=== PATIENT | female | born 1955 | race Caucasian/White ===

== ENCOUNTER → 2017-01-17 | Outpatient (CLI) | payer OTHER ==
[~2017-01-17] MED LIST: ACET65TA; AMOX500C PO; ASCO10003 PO; ASPI1TAB PO; ASPI81TA83; BENA25CA2 PO; CETI10TA; FLUO20CA8 PO; FURO40TA2 PO; HCTZ25 PO; KEFL500C; LISI10TA4 PO; METO25TAB PO; MICA40TA; MULTLIQ7; OMEP20CA3 PO; PLAV1TAB2 PO; POTA10CA; PROBCAP4 PO; PROZ10CA; PROZ20CA; RANI150T PO; SIMV20TA2 PO; TEMOVATECR TOPICAL; TRIC145T19; VITA500C; VITMTA PO; patanol
--- NOTE | 2017-01-17 12:09 | REP ---
MRA BRAIN WITHOUT CONTRAST: HISTORY: Vertigo. 3D [id number]-gx-[id number] MR angiography was performed at the level of the [place] of [place]. COMPARISON: 01/15/2016. There is no aneurysm, arteriovenous malformation or atherosclerotic lesion. The major intracranial vessels are patent. The vertebral arteries are equal in size. IMPRESSION: Normal MRA brain. Signed by John Russo MD 01/17/2017 12:12 P
--- NOTE | 2017-01-17 12:11 | REP ---
MR BRAIN WITHOUT CONTRAST: HISTORY: Vertigo. COMPARISON: 11/28/2015 Areas of increased signal intensity on T2-weighted images are present in the periventricular and subcortical white matter and lynn. This represents small vessel ischemic disease. There is no intraparenchymal hemorrhage, infarct, mass or midline shift. The ventricular system is normal in appearance. There is no extracerebral collection. The sinuses are clear. IMPRESSION: Small vessel ischemic disease. Signed by John Russo MD 01/17/2017 12:12 P
--- NOTE | 2017-01-17 12:46 | REP ---
MRA CAROTIDS WITHOUT AND WITH CONTRAST: HISTORY: Vertigo. CONTRAST: ProHance 25 mL. Unenhanced 2D mocp-ls-dckdax and contrast-enhanced MR angiography were performed at the level of the carotid bifurcations. The distal common carotid arteries and origins of the external and internal carotid arteries are normal. The vertebral arteries are equal in size and patent. There are no atherosclerotic lesions. IMPRESSION: Normal MRA carotids. Signed by John Russo MD 01/17/2017 01:05 P
== END ==
LOC: M PLARAD 10:20
PROVIDERS: ATTEND Psychiatry & Neurology Neurology
DX: H81.43 Vertigo of central origin, bilateral (principal); G45.9 Transient cerebral ischemic attack, unspecified
CPT/HCPCS: 70544; 70549; 70551; A9576

== ENCOUNTER → 2018-04-23 | Outpatient (CLI) | payer OTHER | LOC: M RAD 09:36 | DX: Z12.2 Encounter for screening for malignant neoplasm of respiratory organs (principal); Z87.891 Personal history of nicotine dependence | CPT/HCPCS: G0297 ==

== ENCOUNTER → 2018-10-07 | Outpatient (CLI) | payer OTHER ==
[~2018-10-07] MED LIST changes: -ASPI1TAB PO; +ASPI81TA26 PO; +METO1TAB63 PO; -METO25TAB PO
--- NOTE | 2018-10-07 09:26 | REPMRS ---
Patient History The patient states she had a clinical breast exam in 03/2018 Baseline Mammogram Patient is postmenopausal. Family history of breast cancer at age 35 in mother. 3D TOMOSYNTHESIS WAS PERFORMED. Digital Woman Screen Mammo: October 07, 2018 - Exam #: [id number] Bilateral CC and MLO view(s) were taken. Technologist: Lisseth Nunez, Technologist FINDINGS: There are scattered fibroglandular densities. There is no evidence of cancer on this mammogram. Assessment: BI-RADS/ACR category 2 mammogram. Benign Findings. Recommendation Routine screening mammogram of both breasts in 1 year (for women over age 40). This mammogram was interpreted with the aid of an FDA-approved computer-aided dectection system. Electronically Signed By: Carlos Hernandez MD 10/07/18 0926
== END ==
LOC: M WHC 07:46
PROVIDERS: ATTEND Family Medicine
DX: Z12.31 Encounter for screening mammogram for malignant neoplasm of breast (principal); Z78.0 Asymptomatic menopausal state; Z80.3 Family history of malignant neoplasm of breast

== ENCOUNTER → 2018-10-08 | Outpatient (REF) | payer OTHER ==
[2018-10-08 12:59] LABS: BASO # 0.1 10^3/uL (0.0-0.2); BASO % 0.5 % (0.0-1.0); EOS # 0.2 10^3/uL (0.0-0.50); EOS % 1.9 % (0.0-3.0); HEMATOCRIT 43.4 % (36.0-47.0); HEMOGLOBIN 13.7 g/dl (12.0-15.5); LYMPH # 2.7 10^3/uL (1.5-4.5); LYMPH % 29.4 % (24.0-44.0); MEAN CORPUSCULAR HGB CONC 31.6 g/dl (32.0-36.5); MEAN CORPUSCULAR VOLUME 91.8 fl (80.0-96.0); MONO # 0.7 10^3/uL (0.0-0.8); NEUTROPHILS # 5.6 10^3/uL (1.8-7.7); NEUTROPHILS % 59.9 % (36.0-66.0); PLATELET COUNT, AUTOMATED 321 10^3/uL (150-450); RED BLOOD COUNT 4.73 10^6/uL (4.00-5.40); WHITE BLOOD COUNT 9.3 10^3/uL (4.0-10.0)
[2018-10-08 13:32] LABS: ALBUMIN 3.7 GM/DL (3.2-5.2); ALT/SGPT 47 U/L (12-78); BILIRUBIN,TOTAL 0.3 MG/DL (0.2-1.0); BLOOD UREA NITROGEN 20 MG/DL (7-18); CALCIUM LEVEL 8.7 MG/DL (8.8-10.2); CARBON DIOXIDE LEVEL 29 MEQ/L (21-32); CHLORIDE LEVEL 110 MEQ/L (98-107); CREATININE FOR GFR 0.63 MG/DL (0.55-1.30); GLOMERULAR FILTRATION RATE > 60.0 (>45); GLUCOSE, FASTING 74 MG/DL (70-100); POTASSIUM SERUM 4.9 MEQ/L (3.5-5.1); SODIUM LEVEL 142 MEQ/L (136-145); TOTAL PROTEIN 7.5 GM/DL (6.4-8.2)
== END ==
LOC: M SFHCADAM 09:44
PROVIDERS: ATTEND Family Medicine
DX: Z01.812 Encounter for preprocedural laboratory examination (principal)

== ENCOUNTER 2018-11-11 07:42 | Day surgery (SDC) | payer OTHER ==
[~2018-11-11] VITALS: Ht 160 cm; Wt 91.2 kg
[~2018-11-11 07:42] MED LIST changes: +NS 1,000 ML IV ONE; +ULTR5TAB PO; +ZOLO50TA PO
[2018-11-11] MEDS ORDERED: LIDOCAINE 2% INJ 100 MG/5 ML SDV (FOR ANES.) As Ordered ONE (08:49)
[2018-11-11] MEDS ORDERED: PROPOFOL 500 MG/50 ML VIAL As Ordered ONE (08:49)
--- NOTE | 2018-11-11 09:34 | ROOR ---
Patient Name: Tom Vu Procedure Date: 11/11/2018 8:44 AM Date of : 1955 Age: 62 Room: [facility] Gender: Female Note Status: Finalized Procedure: Colonoscopy Indications: Screening for colorectal malignant neoplasm Providers: Abdiel Lawson MD Referring MD: Anita CLAUDIO DO Requesting Provider: Medicines: Monitored Anesthesia Care Complications: No immediate complications. Procedure: Pre-Anesthesia Assessment: - Prior to the procedure, a History and Physical was performed, and patient medications and allergies were reviewed. The patient is competent. The risks and benefits of the procedure and the sedation options and risks were discussed with the patient. All questions were answered and informed consent was obtained. Patient identification and proposed procedure were verified by the physician, the nurse and the anesthesiologist in the endoscopy suite. Mental Status Examination: alert and oriented. Airway Examination: normal oropharyngeal airway and neck mobility. Respiratory Examination: clear to auscultation. CV Examination: normal. Prophylactic Antibiotics: The patient does not require prophylactic antibiotics. Prior Anticoagulants: The patient has taken aspirin, last dose was 1 day prior to procedure. ASA Grade Assessment: II - A patient with mild systemic disease. After reviewing the risks and benefits, the patient was deemed in satisfactory condition to undergo the procedure. The anesthesia plan was to use monitored anesthesia care (MAC). Immediately prior to administration of medications, the patient was re-assessed for adequacy to receive sedatives. The heart rate, respiratory rate, oxygen saturations, blood pressure, adequacy of pulmonary ventilation, and response to care were monitored throughout the procedure. The physical status of the patient was re-assessed after the procedure. The Colonoscope was introduced through the anus and advanced to the cecum, identified by appendiceal orifice and ileocecal valve. The colonoscopy was technically difficult and complex due to poor bowel prep. Successful completion of the procedure was aided by lavage. The patient tolerated the procedure well. The quality of the bowel preparation was fair. Left colon with scattered small pieces of solid stool but generally manageable with lavage. Right colon (ascending and cecum) with thick coating of the mucosa circumferentially which was difficult to dislodge with generous lavage. Findings: Hemorrhoids were found on perianal exam. The colon (entire examined portion) appeared normal. Estimated blood loss: none. The retroflexed view of the distal rectum and anal verge was normal and showed no anal or rectal abnormalities. Impression: - Hemorrhoids found on perianal exam. - The entire examined colon is normal. - The distal rectum and anal verge are normal on retroflexion view. - No specimens collected. Recommendation: - Discharge patient to home (ambulatory). - Repeat colonoscopy in 1 year because the bowel preparation was suboptimal. Abdiel Lawson MD Abdiel Lawson MD 11/11/2018 9:34:14 AM Electronically signed by Abdiel Lawson MD Number of Addenda: 0 Note Initiated On: 11/11/2018 8:44 AM Estimated Blood Loss: Estimated blood loss: none.
[2018-11-11 10:00] VITALS: BP 175/72
== END 2018-11-11 10:04 | disposition home or self-care (01) ==
LOC: M OPP 07:42
PROVIDERS: ATTEND Surgery
DX: K64.8 Other hemorrhoids (principal); Z12.11 Encounter for screening for malignant neoplasm of colon

== ENCOUNTER → 2018-12-09 | Outpatient (CLI) | payer OTHER ==
[~2018-12-09] MED LIST changes: -NS 1,000 ML IV ONE; -OMEP20CA3 PO; +OMEP20CA4 PO
[2018-12-09 13:26] LABS: HEMOGLOBIN 13.7 g/dl (12.0-15.5); MEAN CORPUSCULAR HEMOGLOBIN 28.8 pg (27.0-33.0); MEAN CORPUSCULAR HGB CONC 31.9 g/dl (32.0-36.5); MEAN CORPUSCULAR VOLUME 90.3 fl (80.0-96.0); PLATELET COUNT, AUTOMATED 308 10^3/uL (150-450); RED BLOOD COUNT 4.76 10^6/uL (4.00-5.40); WHITE BLOOD COUNT 8.4 10^3/uL (4.0-10.0)
[2018-12-09 13:42] LABS: BLOOD UREA NITROGEN 18 MG/DL (7-18); CARBON DIOXIDE LEVEL 27 MEQ/L (21-32); CHLORIDE LEVEL 111 MEQ/L (98-107); CREATININE FOR GFR 0.65 MG/DL (0.55-1.30); GLOMERULAR FILTRATION RATE > 60.0 (>45); GLUCOSE, FASTING 88 MG/DL (70-100); POTASSIUM SERUM 4.2 MEQ/L (3.5-5.1); SODIUM LEVEL 144 MEQ/L (136-145)
[2018-12-09 13:43] LABS: CALCIUM LEVEL 8.9 MG/DL (8.8-10.2); TROPONIN I < 0.02 NG/ML (< 0.10)
== END ==
LOC: M SMT 10:08
PROVIDERS: ATTEND Internal Medicine Cardiovascular Disease
DX: R07.9 Chest pain, unspecified (principal)

== ENCOUNTER → 2019-09-27 | Outpatient (REF) | payer OTHER ==
[~2019-09-27] MED LIST changes: +FLUO20CA20 PO; -FLUO20CA8 PO; +OMEP1CAP73 PO; -OMEP20CA4 PO; -SIMV20TA2 PO; +SIMV20TA22 PO
[2019-09-27 13:54] LABS: BASO % 0.5 % (0.0-1.0); EOS # 0.2 10^3/uL (0.0-0.5); EOS % 2.2 % (0.0-3.0); HEMOGLOBIN 13.5 g/dl (12.0-15.5); LYMPH # 2.2 10^3/uL (1.5-5.0); LYMPH % 25.8 % (24.0-44.0); MEAN CORPUSCULAR HEMOGLOBIN 28.6 pg (27.0-33.0); MEAN CORPUSCULAR HGB CONC 31.4 g/dl (32.0-36.5); MEAN CORPUSCULAR VOLUME 91.1 fl (80.0-96.0); MONO # 0.7 10^3/uL (0.0-0.8); MONO % 7.9 % (0.0-5.0); NEUTROPHILS # 5.3 10^3/uL (1.5-8.5); NEUTROPHILS % 63.4 % (36.0-66.0); PLATELET COUNT, AUTOMATED 297 10^3/uL (150-450); RED BLOOD COUNT 4.72 10^6/uL (4.00-5.40); WHITE BLOOD COUNT 8.3 10^3/uL (4.0-10.0)
[2019-09-27 14:08] LABS: ALBUMIN 3.6 GM/DL (3.2-5.2); ALT/SGPT 33 U/L (12-78); BILIRUBIN,TOTAL 0.4 MG/DL (0.2-1.0); BLOOD UREA NITROGEN 14 MG/DL (7-18); CALCIUM LEVEL 8.9 MG/DL (8.8-10.2); CARBON DIOXIDE LEVEL 30 MEQ/L (21-32); CHLORIDE LEVEL 107 MEQ/L (98-107); CHOLESTEROL LEVEL 166 MG/DL (<200); CHOLESTEROL RISK RATIO 2.273 (<5); CREATININE FOR GFR 0.67 MG/DL (0.55-1.30); GLOMERULAR FILTRATION RATE > 60.0 (>45); GLUCOSE, FASTING 84 MG/DL (70-100); HDL CHOLESTEROL 73 MG/DL (>40); LDL CHOLESTEROL 68 MG/DL (<100); NON-HDL-C 93 MG/DL; POTASSIUM SERUM 4.6 MEQ/L (3.5-5.1); SODIUM LEVEL 140 MEQ/L (136-145); TOTAL PROTEIN 7.3 GM/DL (6.4-8.2); TRIGLYCERIDES LEVEL 127 MG/DL (<150)
== END ==
LOC: M SFHCADAM 09:04
PROVIDERS: ATTEND Family Medicine
DX: Z00.00 Encounter for general adult medical examination without abnormal findings (principal); R60.9 Edema, unspecified

== ENCOUNTER → 2022-09-02 | Outpatient (CLI) | payer MEDICARE ==
[~2022-09-02] MED LIST changes: +CLOP75TA99 PO; +FLUO-96 PO; -FLUO20CA20 PO; +LISI10TA22 PO; -LISI10TA4 PO; -PLAV1TAB2 PO
== END ==
LOC: M CLY 11:07
PROVIDERS: ATTEND Nurse Practitioner Family
DX: M25.561 Pain in right knee (principal)

== ENCOUNTER → 2022-09-02 | Outpatient (REF) | payer MEDICARE ==
[2022-09-02 17:44] LABS: THYROID STIMULATING HORMONE 1.977 uIU/ML (0.55-4.78)
[2022-09-02 17:45] LABS: FOLATE > 24.00 NG/ML (>5.4)
[2022-09-02 17:46] LABS: FERRITIN 24.5 NG/ML (7.3-270.7); FREE T4 0.97 NG/DL (0.89-1.76); IRON (FE) 58 UG/DL (50-170); PERCENT SATURATION 17.4 % (13.2-45.0); TOTAL IRON BINDING CAPACITY 333 UG/DL (250-425)
[2022-09-02 17:47] LABS: ALBUMIN 3.7 G/DL (3.2-5.2); ALKALINE PHOSPHATASE 92 U/L (46-116); ALT/SGPT 22 U/L (7.0-40); AST/SGOT 21 U/L (<34); BILIRUBIN,TOTAL 0.4 MG/DL (0.3-1.2); BLOOD UREA NITROGEN 16 MG/DL (9-23); CALCIUM LEVEL 8.7 MG/DL (8.3-10.6); CARBON DIOXIDE LEVEL 29 MMOL/L (20-31); CHLORIDE LEVEL 105 MMOL/L (98-107); CHOLESTEROL LEVEL 128 MG/DL (<200); CHOLESTEROL RISK RATIO 1.92 (<5); GLOMERULAR FILTRATION RATE > 60.0 (>45); GLUCOSE, FASTING 88 MG/DL (74-106); HDL CHOLESTEROL 66.6 MG/DL (>40); HEMATOCRIT 43.7 % (36.0-47.0); HEMOGLOBIN 13.8 g/dl (12.0-15.5); LDL CHOLESTEROL 46.8 MG/DL (<100); MEAN CORPUSCULAR HEMOGLOBIN 28.6 pg (27.0-33.0); MEAN CORPUSCULAR HGB CONC 31.6 g/dl (32.0-36.5); MEAN CORPUSCULAR VOLUME 90.5 fl (80.0-96.0); NON-HDL-C 61.4 MG/DL; PLATELET COUNT, AUTOMATED 315 10^3/uL (150-450); POTASSIUM SERUM 4.4 MMOL/L (3.5-5.1); RED BLOOD COUNT 4.83 10^6/uL (4.00-5.40); SODIUM LEVEL 141 MMOL/L (136-145); TOTAL PROTEIN 6.8 G/DL (5.7-8.2); TRIGLYCERIDES LEVEL 73 MG/DL (<150); VITAMIN B12 LEVEL 1189 PG/ML (211-911); WHITE BLOOD COUNT 8.8 10^3/uL (4.0-10.0)
[2022-09-02 17:52] LABS: HEMOGLOBIN A1c 5.4 % (4.0-6.0)
== END ==
LOC: M SFHCCLAY 10:46
PROVIDERS: ATTEND Nurse Practitioner Family
DX: G47.33 Obstructive sleep apnea (adult) (pediatric) (principal); F32.9 Major depressive disorder, single episode, unspecified; Z98.84 Bariatric surgery status; M25.561 Pain in right knee; Z79.899 Other long term (current) drug therapy

== ENCOUNTER → 2022-09-24 | Outpatient (REF) | payer MEDICARE | LOC: M SFHCDERM 13:28 | PROVIDERS: ATTEND Nurse Practitioner Family | DX: L30.8 Other specified dermatitis (principal); R21 Rash and other nonspecific skin eruption | CPT/HCPCS: 11104; 11105; 88300; G0463 ==

== ENCOUNTER → 2022-09-26 | Outpatient (CLI) | payer MEDICARE | LOC: M SOG 08:29 | PROVIDERS: ATTEND Orthopaedic Surgery | DX: M25.462 Effusion, left knee (principal); M17.12 Unilateral primary osteoarthritis, left knee ==

== ENCOUNTER → 2022-10-07 | Outpatient (CLI) | payer MEDICARE ==
[2022-10-07 11:07] LABS: BASO % 0.4 % (0.0-1.0); EOS # 0.1 10^3/uL (0.0-0.5); EOS % 0.8 % (0.0-3.0); HEMATOCRIT 41.8 % (36.0-47.0); HEMOGLOBIN 13.5 g/dl (12.0-15.5); LYMPH # 1.7 10^3/uL (1.5-5.0); LYMPH % 21.6 % (24.0-44.0); MEAN CORPUSCULAR HEMOGLOBIN 29.1 pg (27.0-33.0); MEAN CORPUSCULAR HGB CONC 32.3 g/dl (32.0-36.5); MEAN CORPUSCULAR VOLUME 90.1 fl (80.0-96.0); MONO # 0.5 10^3/uL (0.0-0.8); MONO % 6.5 % (2.0-8.0); NEUTROPHILS # 5.4 10^3/uL (1.5-8.5); NEUTROPHILS % 70.4 % (36.0-66.0); PLATELET COUNT, AUTOMATED 280 10^3/uL (150-450); RED BLOOD COUNT 4.64 10^6/uL (4.00-5.40); WHITE BLOOD COUNT 7.7 10^3/uL (4.0-10.0)
[2022-10-07 11:40] LABS: ALBUMIN 3.2 G/DL (3.2-5.2); ALKALINE PHOSPHATASE 91 U/L (46-116); ALT/SGPT 25 U/L (7.0-40); AST/SGOT 16 U/L (<34); BILIRUBIN,TOTAL 0.4 MG/DL (0.3-1.2); BLOOD UREA NITROGEN 14 MG/DL (9-23); CALCIUM LEVEL 8.3 MG/DL (8.3-10.6); CARBON DIOXIDE LEVEL 28 MMOL/L (20-31); CHLORIDE LEVEL 110 MMOL/L (98-107); CREATININE FOR GFR 0.62 MG/DL (0.55-1.30); GLOMERULAR FILTRATION RATE > 60.0 (>45); GLUCOSE, FASTING 80 MG/DL (74-106); POTASSIUM SERUM 4.5 MMOL/L (3.5-5.1); SODIUM LEVEL 141 MMOL/L (136-145); TOTAL PROTEIN 6.5 G/DL (5.7-8.2)
[2022-10-07 11:54] LABS: HEPATITIS B SURFACE ANTIGEN NEGATIVE (NEGATIVE)
[2022-10-07 12:07] LABS: HIV 1&2 SCREEN CENTAUR NEGATIVE (NEGATIVE)
[2022-10-07 12:15] LABS: HEPATITIS C VIRUS ABY INDEX 0.1 INDEX (<0.8)
[2022-10-07 12:16] LABS: HEPATITIS B CORE ANTIBODY IGM NEGATIVE (NEGATIVE)
== END ==
LOC: M LAB 09:27
PROVIDERS: ATTEND Nurse Practitioner Family
DX: R21 Rash and other nonspecific skin eruption (principal)

== ENCOUNTER → 2023-01-22 | Outpatient (CLI) | payer MEDICARE | LOC: M SOG 09:47 | PROVIDERS: ATTEND Orthopaedic Surgery | DX: M25.561 Pain in right knee (principal); M25.562 Pain in left knee ==

== ENCOUNTER → 2023-02-24 | Outpatient (REF) | payer MEDICARE ==
[~2023-02-24] MED LIST changes: +APRE30TA3 PO; +D3 S1CAP3 PO; +FLUO40CA PO; +OMEP-173 PO; +VITA500T41 PO; +ZYRT10TA12 PO
[2023-02-24 19:41] LABS: BASO % 0.6 % (0.0-1.0); EOS # 0.2 10^3/uL (0.0-0.5); EOS % 2.8 % (0.0-3.0); HEMATOCRIT 40.9 % (36.0-47.0); HEMOGLOBIN 12.9 g/dl (12.0-15.5); LYMPH # 1.8 10^3/uL (1.5-5.0); LYMPH % 26.1 % (24.0-44.0); MEAN CORPUSCULAR HEMOGLOBIN 28.7 pg (27.0-33.0); MEAN CORPUSCULAR HGB CONC 31.5 g/dl (32.0-36.5); MEAN CORPUSCULAR VOLUME 91.1 fl (80.0-96.0); MONO # 0.5 10^3/uL (0.0-0.8); MONO % 7.3 % (2.0-8.0); NEUTROPHILS # 4.3 10^3/uL (1.5-8.5); NEUTROPHILS % 62.9 % (36.0-66.0); PLATELET COUNT, AUTOMATED 273 10^3/uL (150-450); RED BLOOD COUNT 4.49 10^6/uL (4.00-5.40); WHITE BLOOD COUNT 6.8 10^3/uL (4.0-10.0)
[2023-02-24 20:07] LABS: HEMOGLOBIN A1c 5.1 % (4.0-6.0)
[2023-02-24 20:14] LABS: C REACTIVE PROTEIN QUANTITATIV < 0.40 MG/DL (<1.0)
[2023-02-24 20:19] LABS: ALBUMIN 3.4 G/DL (3.2-5.2); ALKALINE PHOSPHATASE 88 U/L (46-116); ALT/SGPT 30 U/L (7.0-40); AST/SGOT 19 U/L (<34); BILIRUBIN,TOTAL 0.5 MG/DL (0.3-1.2); BLOOD UREA NITROGEN 15 MG/DL (9-23); CALCIUM LEVEL 8.2 MG/DL (8.3-10.6); CARBON DIOXIDE LEVEL 28 MMOL/L (20-31); CHLORIDE LEVEL 108 MMOL/L (98-107); CHOLESTEROL LEVEL 125 MG/DL (<200); CHOLESTEROL RISK RATIO 1.67 (<5); CREATININE FOR GFR 0.65 MG/DL (0.55-1.30); GLOMERULAR FILTRATION RATE > 60.0 (>45); GLUCOSE, FASTING 85 MG/DL (74-106); HDL CHOLESTEROL 74.8 MG/DL (>40); NON-HDL-C 50.2 MG/DL; POTASSIUM SERUM 4.2 MMOL/L (3.5-5.1); SODIUM LEVEL 144 MMOL/L (136-145); TOTAL PROTEIN 6.5 G/DL (5.7-8.2); TRIGLYCERIDES LEVEL 61 MG/DL (<150)
== END ==
LOC: M SFHCCLAY 10:15
PROVIDERS: ATTEND Nurse Practitioner Family
DX: Z01.818 Encounter for other preprocedural examination (principal); E78.00 Pure hypercholesterolemia, unspecified

== ENCOUNTER → 2023-02-28 | Outpatient (CLI) | payer MEDICARE | LOC: M RAD 13:07 | PROVIDERS: ATTEND Orthopaedic Surgery | DX: M17.0 Bilateral primary osteoarthritis of knee (principal) ==

== ENCOUNTER 2023-03-11 08:58 | Observation (INO) | payer MEDICARE ==
[~2023-03-11] VITALS: Ht 160 cm; Wt 81.9 kg
[2023-03-11] VITALS (8 sets, daily range): BP systolic 133–197; BP diastolic 63–88; TEMP 96.6–97.9; O2SAT 92–99
[~2023-03-11 08:58] MED LIST changes: +ROPIVA 100MG/KETOR 15MG/EPINEPHRINE 0.3MG IN NS 50ML SYRINGE PA ONE; +TRANEXAMIC ACID INJection 1,000 MG in NS 100 ML IV ONE; +ceFAZolin SOD 2 GM in IV 1 EA IV ONE
[2023-03-11] MEDS ORDERED: LR 1,000 ML IV SCH ×3 (09:15→14:00)
[2023-03-11] MEDS ORDERED: propofoL 200 MG/20 ML VIAL As Ordered ONE (09:31)
[2023-03-11] MEDS ORDERED: ROCURONIUM BROMIDE 50MG/5ML VIAL As Ordered ONE (09:31)
[2023-03-11] MEDS ORDERED: LIDOCAINE 2% 100MG/5ML SDV (FOR ANES.) As Ordered ONE (09:31)
[2023-03-11] MEDS ORDERED: fentaNYL 250 MCG/5 ML INJECTION As Ordered ONE (09:32)
[2023-03-11] MEDS ORDERED: MIDAZOLAM INJ 2MG/2ML VIAL As Ordered ONE (09:32)
[2023-03-11] MEDS ORDERED: ROPIvacaine 0.5% 30ML VIAL PN ONE (10:20)
[2023-03-11] MEDS ORDERED: EPINEPHrine INJ 1 MG/ML 1ML AMP PN ONE (10:20)
[2023-03-11] MEDS ORDERED: dexAMETHasone 10MG/1ML VIAL PRES.FREE PN ONE (10:20)
[2023-03-11] MEDS ORDERED: fentaNYL 100 MCG/2 ML INJECTION IV PRN ×2 (10:20→13:45)
[2023-03-11] MEDS ORDERED: LIDOCAINE 1% SDV 5ML VIAL PN ONE (10:20)
[2023-03-11] MEDS: MIDAZOLAM INJ 2MG/2ML VIAL IV PRN ×2 (10:35→10:40)
[2023-03-11] MEDS ORDERED: TRANEXAMIC ACID 100 MG/ML 10ML VIAL As Ordered ONE (10:40)
[2023-03-11] MEDS ORDERED: ePHEDrine SULFATE 25 MG/5 ML(5MG/ML) SYRINGE As Ordered ONE (11:35)
[2023-03-11] MEDS ORDERED: ONDANSETRON 4MG 2ML VIAL As Ordered ONE (11:51)
[2023-03-11] MEDS ORDERED: KETOROLAC 60MG 2ML VIAL As Ordered ONE (11:51)
[2023-03-11] MEDS ORDERED: ACETAMINOPHEN 1000MG 100ML IV BAG As Ordered ONE (11:51)
[2023-03-11] MEDS ORDERED: HYDROmorphone HCL 2MG/ML 1ML VIAL As Ordered ONE (12:04)
[2023-03-11] MEDS ORDERED: GLYCOPYRROLATE INJ 0.2 MG/ML 2 ML VIAL As Ordered ONE (12:21)
[2023-03-11] MEDS ORDERED: ESMOLOL INJ 100MG/10ML VIAL As Ordered ONE (12:36)
[2023-03-11] MEDS ORDERED: SUGAMMADEX SODIUM 500 MG/5 ML VIAL (BRIDION) As Ordered ONE (13:15)
[2023-03-11] MEDS ORDERED: ONDANSETRON 4MG 2ML VIAL IV PRN ×2 (13:45→14:00)
[2023-03-11] MEDS ORDERED: oxyCODONE 5MG TAB PO PRN ×2 (13:45→14:00)
[2023-03-11] MEDS: LABETALOL 100MG/20ML VIAL IV PRN ×4 (13:53→14:17)
[2023-03-11] MEDS ORDERED: SENNA 8.6 MG TAB (SENOKOT) PO PRN (14:00)
[2023-03-11] MEDS: HYDROMORPHONE HCL 0.5 MG/ 0.5 ML SYRINGE IV PRN ×2 (14:25→14:32)
[2023-03-11] MEDS ORDERED: MED REC IN PROGRESS XX SCH (17:05)
[2023-03-11] MEDS ORDERED: CLOBETASOL 0.05% TOP (17:25)
[2023-03-11] MEDS: ACETAMINOPHEN TAB 650MG DOSE (2X325MG) PO SCH (17:33)
[2023-03-11] MEDS: FERROUS SULFATE 325MG TAB PO SCH (17:34)
[2023-03-11] MEDS: oxyCODONE 5MG TAB PO PRN (17:34)
[2023-03-11] MEDS: ASCORBIC ACID 500 MG TAB PO SCH (17:34)
[2023-03-11] MEDS ORDERED: HOME MED LIST COMPLETE! XX SCH (17:35)
[2023-03-11] MEDS: CETIRIZINE (ZyrTEC) 10 MG TAB PO SCH (18:45)
[2023-03-11] MEDS: FLUoxetine 20MG CAP PO SCH (18:45)
[2023-03-11] MEDS: ceFAZolin SOD 2 GM in IV 1 EA IV SCH (18:46)
[2023-03-11] MEDS: ASPIRIN 81MG ENTERIC TABLET PO SCH (19:47)
[2023-03-11] MEDS: DOCUSATE SODIUM 100MG CAPSULE PO SCH (19:47)
[2023-03-11] MEDS ORDERED: SIMVASTATIN 20 MG TAB PO SCH (21:00)
[2023-03-12] MEDS: ACETAMINOPHEN TAB 650MG DOSE (2X325MG) PO SCH ×2 (00:15→05:09)
[2023-03-12] MEDS: oxyCODONE 5MG TAB PO PRN ×2 (00:15→05:08)
[2023-03-12 00:45] VITALS: BP 164/75; TEMP 97.1; O2SAT 99
[2023-03-12] MEDS: ceFAZolin SOD 2 GM in IV 1 EA IV SCH (03:03)
[2023-03-12 05:05] VITALS: BP 166/70; TEMP 97.3; O2SAT 99
[2023-03-12 06:34] LABS: HEMATOCRIT 32.9 % (36.0-47.0); HEMOGLOBIN 10.6 g/dl (12.0-15.5); MEAN CORPUSCULAR HGB CONC 32.2 g/dl (32.0-36.5); MEAN CORPUSCULAR VOLUME 89.9 fl (80.0-96.0); PLATELET COUNT, AUTOMATED 243 10^3/uL (150-450); RED BLOOD COUNT 3.66 10^6/uL (4.00-5.40); WHITE BLOOD COUNT 19.8 10^3/uL (4.0-10.0)
[2023-03-12 06:46] LABS: INR 1.11
[2023-03-12 07:05] LABS: ALBUMIN 2.9 G/DL (3.2-5.2); ALKALINE PHOSPHATASE 74 U/L (46-116); ALT/SGPT 28 U/L (7.0-40); AST/SGOT 21 U/L (<34); BILIRUBIN,TOTAL 0.3 MG/DL (0.3-1.2); BLOOD UREA NITROGEN 14 MG/DL (9-23); CALCIUM LEVEL 8.5 MG/DL (8.3-10.6); CARBON DIOXIDE LEVEL 26 MMOL/L (20-31); CHLORIDE LEVEL 107 MMOL/L (98-107); CREATININE FOR GFR 0.58 MG/DL (0.55-1.30); GLOMERULAR FILTRATION RATE > 60.0 (>45); GLUCOSE, FASTING 132 MG/DL (74-106); PHOSPHORUS LEVEL 3.8 MG/DL (2.4-5.1); POTASSIUM SERUM 4.2 MMOL/L (3.5-5.1); SODIUM LEVEL 140 MMOL/L (136-145); TOTAL PROTEIN 5.8 G/DL (5.7-8.2)
[2023-03-12] MEDS: ASPIRIN 81MG ENTERIC TABLET PO SCH (08:32)
[2023-03-12] MEDS: DOCUSATE SODIUM 100MG CAPSULE PO SCH (08:32)
[2023-03-12] MEDS: CETIRIZINE (ZyrTEC) 10 MG TAB PO SCH (08:32)
[2023-03-12] MEDS: ASCORBIC ACID 500 MG TAB PO SCH ×2 (08:33→09:00)
[2023-03-12] MEDS: FLUoxetine 20MG CAP PO SCH (08:33)
[2023-03-12] MEDS: FERROUS SULFATE 325MG TAB PO SCH (08:33)
[2023-03-12 08:45] VITALS: BP 125/58; TEMP 97.5; O2SAT 97
[2023-03-12] MEDS ORDERED: SENN-188 PO (09:54)
[2023-03-12] MEDS ORDERED: OXYC-517 PO (09:54)
[2023-03-12] MEDS ORDERED: COLA100C5 PO (09:54)
[2023-03-12] MEDS ORDERED: ACET1TAB55 PO (09:54)
== END 2023-03-12 10:55 | disposition home or self-care (01) ==
LOC: M SDC 08:58 → M ED INP 08:59 → M MS4PR 15:45
PROVIDERS: ADMIT Orthopaedic Surgery; ATTEND Orthopaedic Surgery
DX: M17.11 Unilateral primary osteoarthritis, right knee (principal); M85.60 Other cyst of bone, unspecified site; G47.30 Sleep apnea, unspecified; Z79.899 Other long term (current) drug therapy; Z79.82 Long term (current) use of aspirin; Z87.891 Personal history of nicotine dependence
CPT/HCPCS: 27447; 36415; 73560; 80053; 80069; 82306; 85027; 85610; 87635; 88300; 88305; 96374; 96376; 97161; 97165; 97530; C1713; C1776; G0378; J0131; J0690; J1100; J1170; J1805; J1885; J1920; J2250; J2405; J3010

== ENCOUNTER → 2023-03-20 | Outpatient (CLI) | payer MEDICARE ==
[~2023-03-20] MED LIST changes: +ACET1TAB55 PO; +CLOBETASOL 0.05% TOP; +COLA100C5 PO; +OXYC-517 PO; -ROPIVA 100MG/KETOR 15MG/EPINEPHRINE 0.3MG IN NS 50ML SYRINGE PA ONE; +SENN-188 PO; -TRANEXAMIC ACID INJection 1,000 MG in NS 100 ML IV ONE; -ceFAZolin SOD 2 GM in IV 1 EA IV ONE
== END ==
LOC: M SOG 07:49
PROVIDERS: ATTEND Orthopaedic Surgery
DX: Z47.1 Aftercare following joint replacement surgery (principal)

== ENCOUNTER → 2023-04-17 | Outpatient (CLI) | payer MEDICARE | LOC: M SOG 07:54 | PROVIDERS: ATTEND Orthopaedic Surgery | DX: Z47.1 Aftercare following joint replacement surgery (principal) ==

== ENCOUNTER → 2023-06-27 | Outpatient (CLI) | payer MEDICARE | LOC: M SOG 07:50 | PROVIDERS: ATTEND Orthopaedic Surgery | DX: Z47.1 Aftercare following joint replacement surgery (principal); Z96.651 Presence of right artificial knee joint ==

== ENCOUNTER → 2023-08-25 | Outpatient (REF) | payer MEDICARE, MEDICAID ==
[2023-08-25 18:10] LABS: BASO # 0.1 10^3/uL (0.0-0.2); BASO % 0.7 % (0.0-1.0); EOS # 0.2 10^3/uL (0.0-0.5); EOS % 2.1 % (0.0-3.0); HEMATOCRIT 41.7 % (36.0-47.0); HEMOGLOBIN 13.1 g/dl (12.0-15.5); LYMPH # 1.7 10^3/uL (1.5-5.0); LYMPH % 24.2 % (24.0-44.0); MEAN CORPUSCULAR HEMOGLOBIN 27.8 pg (27.0-33.0); MEAN CORPUSCULAR HGB CONC 31.4 g/dl (32.0-36.5); MEAN CORPUSCULAR VOLUME 88.3 fl (80.0-96.0); MONO # 0.6 10^3/uL (0.0-0.8); MONO % 8.4 % (2.0-8.0); NEUTROPHILS # 4.5 10^3/uL (1.5-8.5); NEUTROPHILS % 64.3 % (36.0-66.0); PLATELET COUNT, AUTOMATED 293 10^3/uL (150-450); RED BLOOD COUNT 4.72 10^6/uL (4.00-5.40)
[2023-08-25 18:31] LABS: IRON (FE) 62 UG/DL (50-170); PERCENT SATURATION 15.8 % (13.2-45.0); TOTAL IRON BINDING CAPACITY 392 UG/DL (250-425)
[2023-08-25 18:32] LABS: ALBUMIN 3.6 G/DL (3.2-5.2); ALKALINE PHOSPHATASE 87 U/L (46-116); ALT/SGPT 25 U/L (7.0-40); AST/SGOT 20 U/L (<34); BILIRUBIN,TOTAL 0.5 MG/DL (0.3-1.2); BLOOD UREA NITROGEN 18 MG/DL (9-23); CALCIUM LEVEL 8.6 MG/DL (8.3-10.6); CARBON DIOXIDE LEVEL 30 MMOL/L (20-31); CHLORIDE LEVEL 107 MMOL/L (98-107); CHOLESTEROL LEVEL 136 MG/DL (<200); CHOLESTEROL RISK RATIO 1.64 (<5); CREATININE FOR GFR 0.63 MG/DL (0.55-1.30); GLOMERULAR FILTRATION RATE > 60.0 (>45); GLUCOSE, FASTING 87 MG/DL (74-106); HDL CHOLESTEROL 82.8 MG/DL (>40); HEMOGLOBIN A1c 5.4 % (4.0-6.0); LDL CHOLESTEROL 38.6 MG/DL (<100); NON-HDL-C 53.2 MG/DL; POTASSIUM SERUM 4.5 MMOL/L (3.5-5.1); SODIUM LEVEL 140 MMOL/L (136-145); TOTAL PROTEIN 6.6 G/DL (5.7-8.2); TRIGLYCERIDES LEVEL 73 MG/DL (<150)
[2023-08-25 18:33] LABS: FERRITIN 10.4 NG/ML (7.3-270.7); FREE T4 0.95 NG/DL (0.89-1.76); THYROID STIMULATING HORMONE 1.556 uIU/ML (0.55-4.78); TOTAL 25(OH) VITAMIN D 40.5 NG/ML (20.0-100.0)
[2023-08-25 18:34] LABS: FOLATE > 24.00 NG/ML (>5.4)
[2023-08-25 18:37] LABS: VITAMIN B12 LEVEL > 2000 PG/ML (211-911)
== END ==
LOC: M SFHCCLAY 09:10
PROVIDERS: ATTEND Nurse Practitioner Family
DX: L40.8 Other psoriasis (principal); Z95.818 Presence of other cardiac implants and grafts; E78.5 Hyperlipidemia, unspecified; F32.9 Major depressive disorder, single episode, unspecified; G47.33 Obstructive sleep apnea (adult) (pediatric); K21.9 Gastro-esophageal reflux disease without esophagitis; Z98.84 Bariatric surgery status; Z79.899 Other long term (current) drug therapy; Z79.82 Long term (current) use of aspirin; Z99.89 Dependence on other enabling machines and devices; Z87.891 Personal history of nicotine dependence; Z86.39 Personal history of other endocrine, nutritional and metabolic disease

== ENCOUNTER → 2023-09-12 | Outpatient (CLI) | payer MEDICARE, MEDICAID | LOC: M SOG 08:04 | PROVIDERS: ATTEND Orthopaedic Surgery | DX: M25.562 Pain in left knee (principal); Z47.1 Aftercare following joint replacement surgery ==

== ENCOUNTER → 2023-09-19 | Outpatient (CLI) | payer OTHER, MEDICAID ==
[2023-09-19 10:27] LABS: BASO % 0.5 % (0.0-1.0); EOS # 0.1 10^3/uL (0.0-0.5); EOS % 1.4 % (0.0-3.0); HEMATOCRIT 36.2 % (36.0-47.0); HEMOGLOBIN 11.8 g/dl (12.0-15.5); LYMPH # 1.6 10^3/uL (1.5-5.0); LYMPH % 20.8 % (24.0-44.0); MEAN CORPUSCULAR HGB CONC 32.6 g/dl (32.0-36.5); MONO # 0.6 10^3/uL (0.0-0.8); MONO % 8.1 % (2.0-8.0); NEUTROPHILS # 5.4 10^3/uL (1.5-8.5); NEUTROPHILS % 68.8 % (36.0-66.0); PLATELET COUNT, AUTOMATED 256 10^3/uL (150-450); RED BLOOD COUNT 4.21 10^6/uL (4.00-5.40); WHITE BLOOD COUNT 7.9 10^3/uL (4.0-10.0)
[2023-09-19 10:46] LABS: INR 0.94; PROTHROMBIN TIME 12.3 SECONDS (12.5-14.5)
[2023-09-19 10:54] LABS: C REACTIVE PROTEIN QUANTITATIV < 0.40 MG/DL (<1.0)
[2023-09-19 10:56] LABS: ALBUMIN 3.4 G/DL (3.2-5.2); ALKALINE PHOSPHATASE 90 U/L (46-116); ALT/SGPT 24 U/L (7.0-40); AST/SGOT 19 U/L (<34); BILIRUBIN,TOTAL 0.4 MG/DL (0.3-1.2); BLOOD UREA NITROGEN 17 MG/DL (9-23); CALCIUM LEVEL 8.6 MG/DL (8.3-10.6); CARBON DIOXIDE LEVEL 27 MMOL/L (20-31); CHLORIDE LEVEL 111 MMOL/L (98-107); GLOMERULAR FILTRATION RATE > 60.0 (>45); GLUCOSE, FASTING 83 MG/DL (74-106); POTASSIUM SERUM 3.8 MMOL/L (3.5-5.1); SODIUM LEVEL 144 MMOL/L (136-145); TOTAL PROTEIN 6.2 G/DL (5.7-8.2)
[2023-09-19 10:57] LABS: TOTAL 25(OH) VITAMIN D 45.1 NG/ML (20.0-100.0)
== END ==
LOC: M LAB 09:28
PROVIDERS: ATTEND Orthopaedic Surgery
DX: M17.12 Unilateral primary osteoarthritis, left knee (principal); Z79.899 Other long term (current) drug therapy; Z79.01 Long term (current) use of anticoagulants

== ENCOUNTER → 2023-09-19 | Outpatient (CLI) | payer MEDICAID, OTHER | LOC: M SOG 08:33 | PROVIDERS: ATTEND Orthopaedic Surgery | DX: Z47.1 Aftercare following joint replacement surgery (principal); Z96.653 Presence of artificial knee joint, bilateral; M17.0 Bilateral primary osteoarthritis of knee ==

== ENCOUNTER 2023-10-11 22:23 | Emergency (ER) | payer OTHER, MEDICAID ==
[~2023-10-11] VITALS: Ht 157.5 cm; Wt 76.4 kg
[2023-10-11] MEDS ORDERED: NITR100C2 (22:33)
[2023-10-11 23:13] LABS: BASO % 0.2 % (0.0-1.0); EOS % 0.3 % (0.0-3.0); HEMATOCRIT 38.6 % (36.0-47.0); HEMOGLOBIN 12.9 g/dl (12.0-15.5); LYMPH # 1.2 10^3/uL (1.5-5.0); LYMPH % 7.8 % (24.0-44.0); MEAN CORPUSCULAR HEMOGLOBIN 28.1 pg (27.0-33.0); MEAN CORPUSCULAR HGB CONC 33.4 g/dl (32.0-36.5); MEAN CORPUSCULAR VOLUME 84.1 fl (80.0-96.0); MONO % 12.7 % (2.0-8.0); NEUTROPHILS # 12.2 10^3/uL (1.5-8.5); NEUTROPHILS % 78.5 % (36.0-66.0); PLATELET COUNT, AUTOMATED 252 10^3/uL (150-450); RED BLOOD COUNT 4.59 10^6/uL (4.00-5.40); WHITE BLOOD COUNT 15.5 10^3/uL (4.0-10.0)
[2023-10-11 23:33] LABS: LIPASE 36 U/L (12-53)
[2023-10-11 23:35] LABS: ALBUMIN 3.3 G/DL (3.2-5.2); ALKALINE PHOSPHATASE 123 U/L (46-116); ALT/SGPT 88 U/L (7.0-40); AST/SGOT 29 U/L (<34); BILIRUBIN,DIRECT 0.2 MG/DL (<0.4); BILIRUBIN,TOTAL 0.4 MG/DL (0.3-1.2); BLOOD UREA NITROGEN 20 MG/DL (9-23); CALCIUM LEVEL 8.3 MG/DL (8.3-10.6); CARBON DIOXIDE LEVEL 22 MMOL/L (20-31); CHLORIDE LEVEL 108 MMOL/L (98-107); CREATININE FOR GFR 0.78 MG/DL (0.55-1.30); GLOMERULAR FILTRATION RATE > 60.0 (>45); GLUCOSE, FASTING 147 MG/DL (74-106); POTASSIUM SERUM 3.1 MMOL/L (3.5-5.1); SODIUM LEVEL 142 MMOL/L (136-145); TOTAL PROTEIN 6.7 G/DL (5.7-8.2)
[2023-10-12] MEDS ORDERED: ISOVUE-370 76% 100ML VIAL As Ordered ONE (00:05)
[2023-10-12 00:32] VITALS: TEMP 97.8
[2023-10-12] MEDS: ONDANSETRON 4MG 2ML VIAL IV ONE (00:38)
[2023-10-12] MEDS: MORPHINE 4 MG/ML 1ML VIAL IV ONE (00:41)
[2023-10-12] MEDS: cefTRIAXone SOD 1 GM in D5W MINI-BAG PLUS 50 ML IV ONE (00:54)
[2023-10-12] MEDS: hydrALAZINE 20MG/ML 1ML VIAL IV STA ×2 (02:36→03:34)
[2023-10-12] MEDS ORDERED: FLOM0.4C39 PO (04:35)
[2023-10-12] MEDS ORDERED: OXYC-517 PO (04:35)
[2023-10-12] MEDS ORDERED: CIPR-249 PO (04:35)
[2023-10-12] MEDS: TAMSULOSIN 0.4 MG CAP PO ONE (04:48)
[2023-10-12 04:49] VITALS: BP 140/70; O2SAT 98
[2023-10-12] MEDS: PERCOCET 5MG/325MG TAB PO ONE (04:49)
[2023-10-12] MEDS ORDERED: ONDA4TAB6 PO (05:01)
== END 2023-10-12 05:03 | disposition home or self-care (01) ==
LOC: M ED 22:23
DX: N13.4 Hydroureter (principal); N20.2 Calculus of kidney with calculus of ureter; K21.9 Gastro-esophageal reflux disease without esophagitis; F17.210 Nicotine dependence, cigarettes, uncomplicated; Z79.1 Long term (current) use of non-steroidal anti-inflammatories (NSAID); Z79.810 Long term (current) use of selective estrogen receptor modulators (SERMs); Z79.899 Other long term (current) drug therapy
CPT/HCPCS: 74177; 80048; 80076; 81001; 83605; 83690; 85025; 87040; 87086; 96365; 96374; 96375; 96376; 99284; J0360; J0696; J2405; Q9967

== ENCOUNTER → 2023-10-14 | Outpatient (REF) | payer OTHER, MEDICAID ==
[~2023-10-14] MED LIST changes: +CIPR-249 PO; +ECOT81TA5 PO; +FLOM0.4C39 PO; +MACR100C43 PO; +NITR100C2; +ONDA4TAB6 PO; +OXYB5TAB14 PO; +PYRI1TAB5 PO; +THERTAB52 PO
== END ==
LOC: M LABSMT 10:36
PROVIDERS: ATTEND Urology
DX: N20.1 Calculus of ureter (principal)

== ENCOUNTER → 2023-10-15 | Outpatient (CLI) | payer OTHER, MEDICAID ==
[~2023-10-15] MED LIST changes: -ECOT81TA5 PO; -MACR100C43 PO; -OXYB5TAB14 PO; -PYRI1TAB5 PO; -THERTAB52 PO
== END ==
LOC: M RAD 10:52
PROVIDERS: ATTEND Orthopaedic Surgery
DX: M17.12 Unilateral primary osteoarthritis, left knee (principal)

== ENCOUNTER → 2023-10-22 | Outpatient (CLI) | payer OTHER, MEDICAID | LOC: M RAD 09:36 | PROVIDERS: ATTEND Urology | DX: N20.1 Calculus of ureter (principal) ==

== ENCOUNTER 2023-10-30 10:45 | Day surgery (SDC) | payer OTHER, MEDICAID ==
[~2023-10-30] VITALS: Ht 157.5 cm; Wt 75.7 kg
[~2023-10-30 10:45] MED LIST changes: +ECOT81TA5 PO; +ONDA-282 PO; -ONDA4TAB6 PO; +THERTAB52 PO
[2023-10-30] MEDS: LR 1,000 ML IV SCH (12:32)
[2023-10-30] MEDS ORDERED: LIDOCAINE 2% 100MG/5ML SDV (FOR ANES.) As Ordered ONE (13:51)
[2023-10-30] MEDS ORDERED: propofoL 200 MG/20 ML VIAL As Ordered ONE (13:51)
[2023-10-30] MEDS ORDERED: ONDANSETRON 4MG 2ML VIAL As Ordered ONE (13:51)
[2023-10-30] MEDS ORDERED: MIDAZOLAM INJ 2MG/2ML VIAL As Ordered ONE (13:55)
[2023-10-30] MEDS ORDERED: fentaNYL 100 MCG/2 ML INJECTION As Ordered ONE (13:55)
[2023-10-30] MEDS: ceFAZolin SOD 2 GM in IV 1 EA IV ONE (15:01)
[2023-10-30] MEDS ORDERED: ACETAMINOPHEN 1000MG 100ML IV BAG As Ordered ONE (15:03)
[2023-10-30] MEDS: ISOVUE-300 61% 100ML VIAL As Ordered ONE (15:20)
[2023-10-30] MEDS ORDERED: MACR100C43 PO (15:55)
[2023-10-30] MEDS ORDERED: PYRI1TAB5 PO (15:55)
[2023-10-30] MEDS ORDERED: OXYB5TAB14 PO (15:55)
[2023-10-30] MEDS ORDERED: hydrALAZINE 20MG/ML 1ML VIAL As Ordered ONE (16:08)
[2023-10-30] MEDS ORDERED: MEPERIDINE 25 MG/ML 1ML VIAL IV PRN (16:10)
[2023-10-30] MEDS ORDERED: LR 1,000 ML IV SCH (16:10)
[2023-10-30] MEDS ORDERED: oxyCODONE 5MG TAB PO PRN (16:10)
[2023-10-30] MEDS ORDERED: diphenhydrAMINE 50MG/ML VIAL IV PRN (16:10)
[2023-10-30] MEDS ORDERED: METOCLOPRAMIDE INJ 10MG/2ML VIAL IV PRN (16:10)
[2023-10-30] MEDS: hydrALAZINE 20MG/ML 1ML VIAL IV PRN (16:10)
[2023-10-30] MEDS ORDERED: ONDANSETRON 4MG 2ML VIAL IV PRN (16:10)
[2023-10-30] MEDS ORDERED: fentaNYL 100 MCG/2 ML INJECTION IV PRN (16:10)
[2023-10-30 16:15] VITALS: BP 185/77
[2023-10-30 16:50] VITALS: BP 127/59; TEMP 98; O2SAT 98
[2023-11-10 11:08] LABS: CA Oxalate Dihy 20 % (.); COMPONENT 1 Tan (.); COMPONENT 2 2x2 mm (.); Ca Ox Monohydrate 75 % (.)
== END 2023-10-30 17:15 | disposition home or self-care (01) ==
LOC: M SDC 10:45
PROVIDERS: ATTEND Urology
DX: N20.1 Calculus of ureter (principal); G47.30 Sleep apnea, unspecified; I10 Essential (primary) hypertension; E78.00 Pure hypercholesterolemia, unspecified; K21.9 Gastro-esophageal reflux disease without esophagitis; M17.0 Bilateral primary osteoarthritis of knee; F41.9 Anxiety disorder, unspecified; F32.A Depression, unspecified; L40.9 Psoriasis, unspecified; Z79.899 Other long term (current) drug therapy; Z79.82 Long term (current) use of aspirin; Z87.891 Personal history of nicotine dependence
CPT/HCPCS: 52356; 76000; 82365; C1769; C1894; C2617; J0131; J0360; J0690; J1100; J2250; J2405; J3010; Q9967

== ENCOUNTER → 2023-11-12 | Outpatient (REF) | payer OTHER, MEDICAID ==
[~2023-11-12] MED LIST changes: +AMLO1TAB24 PO; +APRE1TAB PO; +LISI20TA33 PO; +MACR100C43 PO; +OXYB5TAB14 PO; +PYRI1TAB5 PO
[2023-11-12 18:50] LABS: BASO # 0.1 10^3/uL (0.0-0.2); BASO % 0.9 % (0.0-1.0); EOS # 0.3 10^3/uL (0.0-0.5); EOS % 3.2 % (0.0-3.0); HEMOGLOBIN 11.8 g/dl (12.0-15.5); LYMPH # 2.6 10^3/uL (1.5-5.0); LYMPH % 29.7 % (24.0-44.0); MEAN CORPUSCULAR HGB CONC 31.9 g/dl (32.0-36.5); MEAN CORPUSCULAR VOLUME 87.7 fl (80.0-96.0); MONO # 0.6 10^3/uL (0.0-0.8); MONO % 6.8 % (2.0-8.0); NEUTROPHILS # 5.2 10^3/uL (1.5-8.5); NEUTROPHILS % 59.2 % (36.0-66.0); PLATELET COUNT, AUTOMATED 263 10^3/uL (150-450); RED BLOOD COUNT 4.22 10^6/uL (4.00-5.40); WHITE BLOOD COUNT 8.8 10^3/uL (4.0-10.0)
[2023-11-12 19:08] LABS: IRON (FE) 57 UG/DL (50-170)
[2023-11-12 19:09] LABS: PERCENT SATURATION 16.3 % (13.2-45.0); TOTAL IRON BINDING CAPACITY 350 UG/DL (250-425)
[2023-11-12 19:10] LABS: ALBUMIN 3.4 G/DL (3.2-5.2); ALKALINE PHOSPHATASE 92 U/L (46-116); ALT/SGPT 43 U/L (7.0-40); AST/SGOT 32 U/L (<34); BILIRUBIN,TOTAL 0.4 MG/DL (0.3-1.2); BLOOD UREA NITROGEN 14 MG/DL (9-23); CARBON DIOXIDE LEVEL 27 MMOL/L (20-31); CHLORIDE LEVEL 110 MMOL/L (98-107); CREATININE FOR GFR 0.66 MG/DL (0.55-1.30); FERRITIN 30.4 NG/ML (7.3-270.7); GLOMERULAR FILTRATION RATE > 60.0 (>45); GLUCOSE, FASTING 87 MG/DL (74-106); POTASSIUM SERUM 4.1 MMOL/L (3.5-5.1); SODIUM LEVEL 144 MMOL/L (136-145); TOTAL PROTEIN 6.6 G/DL (5.7-8.2)
== END ==
LOC: M SFHCCLAY 10:20
PROVIDERS: ATTEND Nurse Practitioner Family
DX: I16.9 Hypertensive crisis, unspecified (principal); D50.9 Iron deficiency anemia, unspecified

== ENCOUNTER → 2023-12-22 | Outpatient (CLI) | payer OTHER, MEDICAID | LOC: M RAD 08:50 | PROVIDERS: ATTEND Nurse Practitioner Family | DX: I16.9 Hypertensive crisis, unspecified (principal) ==

== ENCOUNTER 2024-02-25 12:03 | Observation (INO) | payer OTHER, MEDICAID ==
[~2024-02-25] VITALS: Ht 160 cm; Wt 76.8 kg
[2024-02-25 12:56] LABS: BASO % 0.5 % (0.0-1.0); EOS # 0.1 10^3/uL (0.0-0.5); EOS % 1.4 % (0.0-3.0); HEMATOCRIT 34.7 % (36.0-47.0); HEMOGLOBIN 11.6 g/dl (12.0-15.5); LYMPH # 2.5 10^3/uL (1.5-5.0); LYMPH % 32.6 % (24.0-44.0); MEAN CORPUSCULAR HEMOGLOBIN 29.6 pg (27.0-33.0); MEAN CORPUSCULAR HGB CONC 33.4 g/dl (32.0-36.5); MEAN CORPUSCULAR VOLUME 88.5 fl (80.0-96.0); MONO # 0.5 10^3/uL (0.0-0.8); MONO % 6.6 % (2.0-8.0); NEUTROPHILS # 4.5 10^3/uL (1.5-8.5); NEUTROPHILS % 58.4 % (36.0-66.0); PLATELET COUNT, AUTOMATED 241 10^3/uL (150-450); RED BLOOD COUNT 3.92 10^6/uL (4.00-5.40); WHITE BLOOD COUNT 7.7 10^3/uL (4.0-10.0)
[2024-02-25 13:28] LABS: THYROID STIMULATING HORMONE 1.432 uIU/ML (0.55-4.78)
[2024-02-25 13:29] LABS: FREE T4 0.94 NG/DL (0.89-1.76)
[2024-02-25 13:35] LABS: CK-MB VALUE MASS < 1.0 NG/ML (<3.6)
[2024-02-25 13:36] LABS: BLOOD UREA NITROGEN 23 MG/DL (9-23); CALCIUM LEVEL 8.9 MG/DL (8.3-10.6); CARBON DIOXIDE LEVEL 25 MMOL/L (20-31); CHLORIDE LEVEL 114 MMOL/L (98-107); CPK CREATINE PHOSPHOKINASE 42 U/L (34-145); CREATININE FOR GFR 0.87 MG/DL (0.55-1.30); GLOMERULAR FILTRATION RATE > 60.0 (>45); GLUCOSE, FASTING 88 MG/DL (74-106); MAGNESIUM LEVEL 1.8 MG/DL (1.8-2.4); MB/CK RELATIVE INDEX 2.38 (< OR =4); POTASSIUM SERUM 3.3 MMOL/L (3.5-5.1); SODIUM LEVEL 143 MMOL/L (136-145)
[2024-02-25] MEDS ORDERED: BUME1TAB3 PO (19:30)
[2024-02-25] MEDS ORDERED: [UNRECOGNIZED DRUG - CODE] PO (19:30)
[2024-02-25] MEDS: POTASSIUM CHLORIDE 10MEQ SR TABLET PO ONE (19:31)
[2024-02-25] MEDS ORDERED: ROSU20TA61 PO (19:33)
[2024-02-25] MEDS ORDERED: CLON0.2D6 TOP (19:33)
[2024-02-25] MEDS ORDERED: FERR324T2 PO (19:34)
[2024-02-25] MEDS ORDERED: MYRB50TA PO (19:35)
[2024-02-25] MEDS ORDERED: HOME MED LIST COMPLETE! XX SCH (19:40)
[2024-02-25] MEDS ORDERED: ACETAMINOPHEN TAB 650MG DOSE (2X325MG) PO PRN (19:45)
[2024-02-25] MEDS: ROSUVASTATIN 10 MG TAB (CRESTOR) PO SCH (20:57)
[2024-02-25] MEDS: OMEPRAZOLE 20MG CAP PO SCH (20:58)
[2024-02-25] MEDS: amLODIPine 5 MG TAB PO SCH (20:58)
[2024-02-25] MEDS: CETIRIZINE (ZyrTEC) 10 MG TAB PO SCH (20:58)
[2024-02-25 22:20] LABS: VITAMIN B12 LEVEL > 2000 PG/ML (211-911)
[2024-02-26 07:23] LABS: HEMATOCRIT 35.1 % (36.0-47.0); HEMOGLOBIN 11.4 g/dl (12.0-15.5); MEAN CORPUSCULAR HEMOGLOBIN 29.5 pg (27.0-33.0); MEAN CORPUSCULAR HGB CONC 32.5 g/dl (32.0-36.5); MEAN CORPUSCULAR VOLUME 90.9 fl (80.0-96.0); PLATELET COUNT, AUTOMATED 237 10^3/uL (150-450); RED BLOOD COUNT 3.86 10^6/uL (4.00-5.40); WHITE BLOOD COUNT 7.9 10^3/uL (4.0-10.0)
[2024-02-26 08:05] LABS: BASO % 0.3 % (0.0-1.0); EOS # 0.2 10^3/uL (0.0-0.5); LYMPH # 2.5 10^3/uL (1.5-5.0); LYMPH % 31.3 % (24.0-44.0); MONO # 0.7 10^3/uL (0.0-0.8); MONO % 8.3 % (2.0-8.0); NEUTROPHILS # 4.6 10^3/uL (1.5-8.5); NEUTROPHILS % 57.8 % (36.0-66.0)
[2024-02-26 08:06] LABS: BLOOD UREA NITROGEN 20 MG/DL (9-23); CALCIUM LEVEL 9.1 MG/DL (8.3-10.6); CARBON DIOXIDE LEVEL 28 MMOL/L (20-31); CHLORIDE LEVEL 114 MMOL/L (98-107); CREATININE FOR GFR 0.91 MG/DL (0.55-1.30); GLOMERULAR FILTRATION RATE > 60.0 (>45); GLUCOSE, FASTING 89 MG/DL (74-106); MAGNESIUM LEVEL 1.9 MG/DL (1.8-2.4); POTASSIUM SERUM 4.4 MMOL/L (3.5-5.1); SODIUM LEVEL 144 MMOL/L (136-145)
[2024-02-26 08:36] VITALS: BP 108/55
[2024-02-26] MEDS: NS 500 ML IV ONE ×2 (08:42→15:40)
[2024-02-26] MEDS: FLUoxetine 20MG CAP PO SCH (08:42)
[2024-02-26] MEDS: NS 1,000 ML IV SCH (08:42)
[2024-02-26] MEDS: ENOXAPARIN 40MG/0.4ML SYRINGE (J1650 PER 10MG) SC SCH (08:42)
[2024-02-26] MEDS: LR 500 ML IV ONE (10:14)
[2024-02-26 15:20] VITALS: BP_SYST 120; BP_SYST 122; BP_SYST 124; BP_DIAS 55; BP_DIAS 60; BP_DIAS 72
[2024-02-26 16:13] VITALS: BP 108/53; TEMP 98.1; O2SAT 98
[2024-02-26 19:05] VITALS: BP 110/52; TEMP 98.2; O2SAT 97
[2024-02-26 20:45] VITALS: BP 110/54; TEMP 97.7; O2SAT 97
[2024-02-26 23:46] VITALS: BP 118/57; TEMP 97.3; O2SAT 96
[2024-02-27] VITALS: BP 118/57; TEMP 97.3; O2SAT 96
[2024-02-27 04:32] VITALS: BP 114/57; TEMP 97.2; O2SAT 98
[2024-02-27 07:07] LABS: BASO % 0.6 % (0.0-1.0); EOS # 0.1 10^3/uL (0.0-0.5); EOS % 1.8 % (0.0-3.0); HEMATOCRIT 31.4 % (36.0-47.0); HEMOGLOBIN 10.1 g/dl (12.0-15.5); LYMPH # 2.1 10^3/uL (1.5-5.0); LYMPH % 30.8 % (24.0-44.0); MEAN CORPUSCULAR HEMOGLOBIN 29.4 pg (27.0-33.0); MEAN CORPUSCULAR HGB CONC 32.2 g/dl (32.0-36.5); MEAN CORPUSCULAR VOLUME 91.5 fl (80.0-96.0); MONO # 0.5 10^3/uL (0.0-0.8); MONO % 6.9 % (2.0-8.0); NEUTROPHILS # 4.1 10^3/uL (1.5-8.5); NEUTROPHILS % 59.6 % (36.0-66.0); PLATELET COUNT, AUTOMATED 189 10^3/uL (150-450); RED BLOOD COUNT 3.43 10^6/uL (4.00-5.40); WHITE BLOOD COUNT 6.8 10^3/uL (4.0-10.0)
[2024-02-27 07:36] LABS: BLOOD UREA NITROGEN 18 MG/DL (9-23); CALCIUM LEVEL 8.1 MG/DL (8.3-10.6); CARBON DIOXIDE LEVEL 26 MMOL/L (20-31); CHLORIDE LEVEL 118 MMOL/L (98-107); CREATININE FOR GFR 0.86 MG/DL (0.55-1.30); GLOMERULAR FILTRATION RATE > 60.0 (>45); GLUCOSE, FASTING 84 MG/DL (74-106); MAGNESIUM LEVEL 1.8 MG/DL (1.8-2.4); POTASSIUM SERUM 4.2 MMOL/L (3.5-5.1); SODIUM LEVEL 146 MMOL/L (136-145)
[2024-02-27 07:46] VITALS: BP 127/58; TEMP 98; O2SAT 97
[2024-02-27] MEDS: CYANOCOBALAMIN 500 MCG TAB PO SCH (08:47)
[2024-02-27 08:48] VITALS: BP_SYST 119; BP_SYST 125; BP_SYST 130; BP_DIAS 60; BP_DIAS 68
[2024-02-27 11:47] VITALS: BP 131/58; TEMP 97.7; O2SAT 99
[2024-03-03 00:32] LABS: IgG P18 AB NON-REACTIVE; IgG P23 AB NON-REACTIVE; IgG P28 AB NON-REACTIVE; IgG P30 AB NON-REACTIVE; IgG P39 AB NON-REACTIVE; IgG P41 AB NON-REACTIVE; IgG P45 AB NON-REACTIVE; IgG P58 AB NON-REACTIVE; IgG P66 AB NON-REACTIVE; IgG P93 AB NON-REACTIVE; IgM P23 AB NON-REACTIVE; IgM P39 AB NON-REACTIVE; IgM P41 AB NON-REACTIVE; LYME IgG WB INTERPRETATION NEGATIVE (NEGATIVE); LYME IgM WB INTERPRETATION NEGATIVE (NEGATIVE)
== END 2024-02-27 13:55 | disposition home or self-care (01) ==
LOC: EDBD 12:03 → M ED 12:03 → M ED INP 12:04 → M PCU 02-26 15:04
PROVIDERS: ADMIT Preventive Medicine Undersea and Hyperbaric Medicine; ATTEND Preventive Medicine Undersea and Hyperbaric Medicine
DX: R55 Syncope and collapse (principal); I11.0 Hypertensive heart disease with heart failure; R00.1 Bradycardia, unspecified; R42 Dizziness and giddiness; Z95.818 Presence of other cardiac implants and grafts; Z98.890 Other specified postprocedural states; R26.2 Difficulty in walking, not elsewhere classified; E87.20 Acidosis, unspecified; D64.9 Anemia, unspecified; E87.8 Other disorders of electrolyte and fluid balance, not elsewhere classified; M50.20 Other cervical disc displacement, unspecified cervical region; I36.1 Nonrheumatic tricuspid (valve) insufficiency; I50.30 Unspecified diastolic (congestive) heart failure; G47.33 Obstructive sleep apnea (adult) (pediatric); E78.5 Hyperlipidemia, unspecified; F39 Unspecified mood [affective] disorder; K21.9 Gastro-esophageal reflux disease without esophagitis; Z79.899 Other long term (current) drug therapy
CPT/HCPCS: 36415; 71046; 72141; 80048; 82550; 82553; 82607; 83605; 83735; 83880; 84439; 84443; 84484; 85025; 85027; 86617; 86618; 93005; 93041; 93306; 94660; 94760; 96360; 96361; 96372; 97161; 99285; G0378; J1650

== ENCOUNTER → 2024-05-25 | Outpatient (REF) | payer OTHER, MEDICAID ==
[~2024-05-25] MED LIST changes: +BUME1TAB3 PO; +CLON0.2D6 TOP; +FERR324T2 PO; +MYRB50TA PO; +ROSU20TA86 PO; +[UNRECOGNIZED DRUG - CODE] PO
[2024-05-25 18:53] LABS: ALBUMIN 3.4 G/DL (3.2-5.2); ALKALINE PHOSPHATASE 109 U/L (35-104); ALT/SGPT 23 U/L (7.0-40); AST/SGOT 20 U/L (<34); BILIRUBIN,TOTAL 0.3 MG/DL (0.3-1.2); BLOOD UREA NITROGEN 19 MG/DL (9-23); CALCIUM LEVEL 9.1 MG/DL (8.3-10.6); CARBON DIOXIDE LEVEL 26 MMOL/L (20-31); CHLORIDE LEVEL 110 MMOL/L (98-107); CHOLESTEROL LEVEL 189 MG/DL (<200); CHOLESTEROL RISK RATIO 2.22 (<5); CREATININE FOR GFR 0.61 MG/DL (0.55-1.30); GLOMERULAR FILTRATION RATE > 60.0 (>45); GLUCOSE, FASTING 81 MG/DL (74-106); HDL CHOLESTEROL 84.8 MG/DL (>40); LDL CHOLESTEROL 84.2 MG/DL (<100); NON-HDL-C 104.2 MG/DL; POTASSIUM SERUM 4.4 MMOL/L (3.5-5.1); SODIUM LEVEL 145 MMOL/L (136-145); TOTAL PROTEIN 6.8 G/DL (5.7-8.2); TRIGLYCERIDES LEVEL 100 MG/DL (<150)
== END ==
LOC: M SFHCCLAY 10:28
PROVIDERS: ATTEND Nurse Practitioner Family
DX: R74.8 Abnormal levels of other serum enzymes (principal)

== ENCOUNTER → 2024-07-30 | Outpatient (CLI) | payer OTHER, MEDICAID ==
[2024-07-30 11:05] LABS: ALBUMIN 3.6 G/DL (3.2-5.2); ALKALINE PHOSPHATASE 93 U/L (35-104); ALT/SGPT 25 U/L (7.0-40); AST/SGOT 19 U/L (<34); BILIRUBIN,TOTAL 0.4 MG/DL (0.3-1.2); BLOOD UREA NITROGEN 16 MG/DL (9-23); CALCIUM LEVEL 9.2 MG/DL (8.3-10.6); CARBON DIOXIDE LEVEL 28 MMOL/L (20-31); CHLORIDE LEVEL 109 MMOL/L (98-107); CHOLESTEROL LEVEL 136 MG/DL (<200); CHOLESTEROL RISK RATIO 1.43 (<5); CREATININE FOR GFR 0.75 MG/DL (0.55-1.30); GLOMERULAR FILTRATION RATE > 60.0 (>45); GLUCOSE, FASTING 81 MG/DL (74-106); HDL CHOLESTEROL 94.6 MG/DL (>40); LDL CHOLESTEROL 27.2 MG/DL (<100); NON-HDL-C 41.4 MG/DL; POTASSIUM SERUM 4.2 MMOL/L (3.5-5.1); SODIUM LEVEL 146 MMOL/L (136-145); TRIGLYCERIDES LEVEL 71 MG/DL (<150)
[2024-08-01 04:57] LABS: LDL DIRECT 25 mg/dL (<100)
== END ==
LOC: M LAB 09:48
PROVIDERS: ATTEND Internal Medicine Cardiovascular Disease
DX: I50.32 Chronic diastolic (congestive) heart failure (principal); E78.2 Mixed hyperlipidemia; G47.33 Obstructive sleep apnea (adult) (pediatric); R06.02 Shortness of breath

== ENCOUNTER → 2024-08-17 | Outpatient (REF) | payer OTHER, MEDICAID | LOC: M SFHCDERM 17:47 | PROVIDERS: ATTEND Nurse Practitioner Family | DX: L08.9 Local infection of the skin and subcutaneous tissue, unspecified (principal) ==

== ENCOUNTER → 2024-08-20 | Outpatient (REF) | payer OTHER, MEDICAID ==
[2024-08-20 17:34] LABS: BASO % 0.5 % (0.0-1.0); EOS # 0.1 10^3/uL (0.0-0.5); EOS % 1.8 % (0.0-3.0); HEMATOCRIT 40.2 % (36.0-47.0); HEMOGLOBIN 12.9 g/dl (12.0-15.5); LYMPH # 1.9 10^3/uL (1.5-5.0); LYMPH % 23.6 % (24.0-44.0); MEAN CORPUSCULAR HEMOGLOBIN 28.7 pg (27.0-33.0); MEAN CORPUSCULAR HGB CONC 32.1 g/dl (32.0-36.5); MEAN CORPUSCULAR VOLUME 89.3 fl (80.0-96.0); MONO # 0.6 10^3/uL (0.0-0.8); MONO % 6.9 % (2.0-8.0); NEUTROPHILS # 5.3 10^3/uL (1.5-8.5); NEUTROPHILS % 66.9 % (36.0-66.0); PLATELET COUNT, AUTOMATED 278 10^3/uL (150-450); WHITE BLOOD COUNT 7.9 10^3/uL (4.0-10.0)
[2024-08-20 17:47] LABS: ALBUMIN 3.7 G/DL (3.2-5.2); ALKALINE PHOSPHATASE 91 U/L (35-104); ALT/SGPT 31 U/L (7.0-40); AST/SGOT 26 U/L (<34); BILIRUBIN,TOTAL 0.4 MG/DL (0.3-1.2); BLOOD UREA NITROGEN 17 MG/DL (9-23); CALCIUM LEVEL 9.1 MG/DL (8.3-10.6); CARBON DIOXIDE LEVEL 28 MMOL/L (20-31); CHLORIDE LEVEL 108 MMOL/L (98-107); CHOLESTEROL LEVEL 144 MG/DL (<200); CREATININE FOR GFR 0.68 MG/DL (0.55-1.30); FERRITIN 12.8 NG/ML (7.3-270.7); FREE T4 1.07 NG/DL (0.89-1.76); GLOMERULAR FILTRATION RATE > 60.0 (>45); GLUCOSE, FASTING 84 MG/DL (74-106); HDL CHOLESTEROL 95.5 MG/DL (>40); IRON (FE) 88 UG/DL (50-170); LDL CHOLESTEROL 37.3 MG/DL (<100); NON-HDL-C 48.5 MG/DL; PERCENT SATURATION 23.2 % (13.2-45.0); POTASSIUM SERUM 4.1 MMOL/L (3.5-5.1); SODIUM LEVEL 145 MMOL/L (136-145); THYROID STIMULATING HORMONE 1.488 uIU/ML (0.55-4.78); TOTAL IRON BINDING CAPACITY 379 UG/DL (250-425); TOTAL PROTEIN 7.2 G/DL (5.7-8.2); TRIGLYCERIDES LEVEL 56 MG/DL (<150)
[2024-08-20 17:48] LABS: FOLATE > 24.00 NG/ML (>5.4)
[2024-08-20 17:49] LABS: VITAMIN B12 LEVEL 1605 PG/ML (211-911)
== END ==
LOC: M SFHCCLAY 09:36
PROVIDERS: ATTEND Nurse Practitioner Family
DX: I16.9 Hypertensive crisis, unspecified (principal); Z98.84 Bariatric surgery status; Z79.899 Other long term (current) drug therapy

== ENCOUNTER → 2024-10-20 | Outpatient (REF) | payer MEDICARE ==
[~2024-10-20] MED LIST changes: -FLOM0.4C39 PO; +TAMS-18 PO
== END ==
LOC: M SFHCADAM 10:47
PROVIDERS: ATTEND Nurse Practitioner Family
DX: R19.7 Diarrhea, unspecified (principal)

== ENCOUNTER → 2025-03-23 | Outpatient (CLI) | payer MEDICARE, MEDICAID | LOC: M RAD 07:42 | PROVIDERS: ATTEND Nurse Practitioner Family | DX: R74.8 Abnormal levels of other serum enzymes (principal) ==

== ENCOUNTER 2025-03-27 18:20 | Inpatient (IN) | payer MEDICARE, MEDICAID ==
[~2025-03-27] VITALS: Ht 157.5 cm; Wt 67.8 kg
[2025-03-27 19:21] LABS: BASO # 0.1 10^3/uL (0.0-0.2); BASO % 0.5 % (0.0-1.0); EOS # 0.1 10^3/uL (0.0-0.5); EOS % 0.8 % (0.0-3.0); LYMPH # 1.7 10^3/uL (1.5-5.0); LYMPH % 15.7 % (24.0-44.0); MONO # 0.7 10^3/uL (0.0-0.8); MONO % 6.4 % (2.0-8.0); NEUTROPHILS # 8.4 10^3/uL (1.5-8.5); NEUTROPHILS % 76.2 % (36.0-66.0); PLATELET COUNT, AUTOMATED 252 10^3/uL (150-450)
[2025-03-27 19:34] LABS: INR 0.99
[2025-03-27 19:55] LABS: CPK CREATINE PHOSPHOKINASE 51 U/L (34-145)
[2025-03-27 19:56] LABS: CALCIUM LEVEL 8.5 MG/DL (8.3-10.6); CARBON DIOXIDE LEVEL 23 MMOL/L (20-31); CHLORIDE LEVEL 109 MMOL/L (98-107); CK-MB VALUE MASS < 1.0 NG/ML (<3.6); CREATININE FOR GFR 0.89 MG/DL (0.55-1.30); GLOMERULAR FILTRATION RATE 70.6 (>45); MAGNESIUM LEVEL 1.7 MG/DL (1.8-2.4); POTASSIUM SERUM 3.5 MMOL/L (3.5-5.1); SODIUM LEVEL 145 MMOL/L (136-145)
[2025-03-27 19:58] LABS: FREE T4 1.00 NG/DL (0.89-1.76)
[2025-03-27] MEDS: MAG SULF 1GM/100ML (MAG RUN) 1 GM in IV 1 EA IV ONE (23:02)
[2025-03-27] MEDS ORDERED: MAALOX 30 ML SUSP *UDC PO PRN (23:10)
[2025-03-27] MEDS ORDERED: MOM 30 ML SUSPENSION UDC PO PRN (23:10)
[2025-03-27] MEDS ORDERED: ACETAMINOPHEN 325 MG TAB PO PRN (23:10)
[2025-03-28] MEDS ORDERED: FARX1TAB3 PO (03:53)
[2025-03-28] MEDS ORDERED: BUSP5TA PO (03:53)
[2025-03-28] MEDS ORDERED: AMLO1TAB24 PO (03:53)
[2025-03-28] MEDS ORDERED: HOME MED LIST COMPLETE! XX SCH (03:55)
[2025-03-28 06:29] LABS: PLATELET COUNT, AUTOMATED 227 10^3/uL (150-450)
[2025-03-28 07:05] LABS: ALT/SGPT 58 U/L (7.0-40); AST/SGOT 38 U/L (<34); CALCIUM LEVEL 8.5 MG/DL (8.3-10.6); CARBON DIOXIDE LEVEL 26 MMOL/L (20-31); CHLORIDE LEVEL 110 MMOL/L (98-107); CREATININE FOR GFR 0.69 MG/DL (0.55-1.30); GLOMERULAR FILTRATION RATE > 90.0 (>45); MAGNESIUM LEVEL 1.9 MG/DL (1.8-2.4); POTASSIUM SERUM 3.4 MMOL/L (3.5-5.1); SODIUM LEVEL 147 MMOL/L (136-145)
[2025-03-28] MEDS: DOCUSATE SODIUM 100 MG CAPSULE PO SCH (09:00)
[2025-03-28] MEDS: HEPARIN SOD 5000 UNITS/ML 1 ML VIAL/SYRINGE SC SCH (10:38)
[2025-03-28] MEDS: POTASSIUM CHLORIDE 10% LIQ 20MEQ/15ML UDC PO ONE (11:46)
[2025-03-28] MEDS: MAG SULF 1GM/100ML (MAG RUN) 1 GM in IV 1 EA IV ONE (11:47)
[2025-03-28] MEDS: amLODIPine 5 MG TAB PO ONE (13:15)
[2025-03-28 16:41] LABS: CALCIUM LEVEL 8.7 MG/DL (8.3-10.6); CARBON DIOXIDE LEVEL 25 MMOL/L (20-31); CHLORIDE LEVEL 108 MMOL/L (98-107); CREATININE FOR GFR 0.62 MG/DL (0.55-1.30); GLOMERULAR FILTRATION RATE > 90.0 (>45); POTASSIUM SERUM 4.1 MMOL/L (3.5-5.1); SODIUM LEVEL 144 MMOL/L (136-145)
[2025-03-28 21:19] VITALS: BP 168/75; TEMP 97.1; O2SAT 97
[2025-03-29] VITALS: BP_SYST 161; BP_SYST 171; BP_SYST 183; BP_DIAS 74; BP_DIAS 82
[2025-03-29 00:04] VITALS: BP 161/74; TEMP 97.7; O2SAT 94
[2025-03-29 04:35] VITALS: BP 166/76; TEMP 97.6
[2025-03-29 07:30] VITALS: BP 145/80
[2025-03-29] MEDS: amLODIPine 5 MG TAB PO SCH (07:30)
[2025-03-29 07:37] LABS: PLATELET COUNT, AUTOMATED 253 10^3/uL (150-450)
[2025-03-29 08:02] LABS: CALCIUM LEVEL 8.5 MG/DL (8.3-10.6); CARBON DIOXIDE LEVEL 26 MMOL/L (20-31); CHLORIDE LEVEL 108 MMOL/L (98-107); CREATININE FOR GFR 0.63 MG/DL (0.55-1.30); GLOMERULAR FILTRATION RATE > 90.0 (>45); MAGNESIUM LEVEL 1.8 MG/DL (1.8-2.4); POTASSIUM SERUM 3.9 MMOL/L (3.5-5.1); SODIUM LEVEL 146 MMOL/L (136-145)
[2025-03-29] MEDS: DAPAGLIFLOZIN PROPANEDIOL 10 MG TABLET PO SCH (11:42)
[2025-03-29] MEDS: D5W 1,000 ML IV SCH (11:43)
[2025-03-29] MEDS ORDERED: hydrALAZINE 20 MG/ML 1 ML VIAL IV PRN (12:10)
[2025-03-29 14:39] VITALS: BP 164/73; TEMP 97.6; O2SAT 100
[2025-03-29] MEDS ORDERED: amLODIPine 5 MG TAB PO ONE (15:15)
[2025-03-29] MEDS ORDERED: ROSUVASTATIN 10 MG TAB PO SCH (21:00)
[2025-03-29] MEDS ORDERED: OMEPRAZOLE 20MG CAP PO SCH (21:00)
[2025-03-29] MEDS ORDERED: CETIRIZINE 10 MG TAB PO SCH (21:00)
[2025-03-30] MEDS ORDERED: amLODIPine 5 MG TAB PO SCH (09:00)
== END 2025-03-29 14:41 | disposition short-term general hospital (02) | DRG 310 ==
LOC: M ED 18:20 → M ED INP 18:21 → OBSVTOIN 03-29 11:05
PROVIDERS: ADMIT Student in an Organized Health Care Education/Training Program; ATTEND Internal Medicine
DX: I44.2 Atrioventricular block, complete (principal); R55 Syncope and collapse; I10 Essential (primary) hypertension; E78.5 Hyperlipidemia, unspecified; G47.33 Obstructive sleep apnea (adult) (pediatric); K21.9 Gastro-esophageal reflux disease without esophagitis; F32.A Depression, unspecified; R00.1 Bradycardia, unspecified; E87.6 Hypokalemia; I49.3 Ventricular premature depolarization; I48.0 Paroxysmal atrial fibrillation; E83.42 Hypomagnesemia; Z95.828 Presence of other vascular implants and grafts; Z96.651 Presence of right artificial knee joint; Z79.899 Other long term (current) drug therapy; Z98.84 Bariatric surgery status; Z86.73 Personal history of transient ischemic attack (TIA), and cerebral infarction without residual deficits

== ENCOUNTER → 2025-05-27 | Outpatient (REF) | payer MEDICARE, MEDICAID ==
[~2025-05-27] MED LIST changes: +BUSP5TA PO; +FARX1TAB3 PO
== END ==
LOC: M SFHCCLAY 17:26
PROVIDERS: ATTEND Nurse Practitioner Family
DX: R82.90 Unspecified abnormal findings in urine (principal)